=== PATIENT | female | born 1945 | race Two or more races ===

== ENCOUNTER 2024-11-15 13:25 | Outpatient (AMB) | payer MEDICARE, SELFPAY ==
[2024-11-15 13:54] VITALS: BP 136/62; PULSE 73; RESP 16; TEMP 36.6; O2SAT 97; BMI 29.3
--- NOTE | 2024-11-15 13:54 | ORTHONT_ITS ---
Vital signs 11/15/24 13:54 Height 1.47 m Height Method Measured Weight 63.73 kg Weight Measurement Method Standing Scale BMI 29.3 BP 136/62 H Blood Pressure Source Automatic Cuff Blood Pressure Location Right Upper Arm Position Sitting Respiration 16 Pulse 73 Pulse Source Monitor Temp 97.8 F Temp Source Temporal Artery Scan Pulse Oximetry (%) 97 Oxygen Delivery Method Room Air Med/Allergies Allergies & Medications Allergies No Known Allergies Allergy (Verified 11/15/24 13:57) Medication Reconciliation acetaminophen 650 mg/20.3 mL oral solution 650 mg PO Q6H PRN 11/15/24 [History C onfirmed 11/15/24] atorvastatin 10 mg tablet 10 mg PO QDAY 11/15/24 [History Confirmed 11/15/24] glipizide 5 mg tablet 5 mg PO BID 11/15/24 [History Confirmed 11/15/24] hydrochlorothiazide 12.5 mg tablet 12.5 mg PO QDAY 11/15/24 [History Confirmed 11/15/24] losartan 100 mg tablet 100 mg PO QDAY 11/15/24 [History Confirmed 11/15/24] Exam Exam Patient is in no acute distress and is cooperative with the examination today. Breathing is nonlabored. Patient has a normal mood and affect. Bilateral extremities were evaluated and demonstrates sensation intact to light touch. Palpable pedal pulses are present. No significant edema is present. Bilateral hips were examined. The patient has no pain with log roll of the hips. Internal rotation to 30 degrees and external rotation to 30 degrees is painless. Negative FADIR. Right knee was examined today. The right knee is in reasonable alignment. Range of motion from 0-120 degrees. Knee is stable to varus and valgus as well as AP translation with <5mm. Patient has a negative McMurrays. There is no pain with patellofemoral compression and no crepitus noted. The knee is nontender to pal pation. Left knee was examined today. The left knee is in varus alignment. Range of motion from 0-115 degrees. Knee is stable to varus and valgus as well as AP translation with <5mm. Patient has a negative McMurrays. There is no pain with patellofemoral compression and no crepitus noted. The knee is tender to palpation medially. X-rays from 12/26/2021 demonstrates complete obliteration of the medial joint space and varus deformity. Assessment and Plan Problem List (1) Arthritis of left knee: Status: Acute Plan: Patient is a pleasant 79-year-old female with left knee pain and left knee arthritis. We discussed different treatment options. We will Get new weightbearing x-rays as the last ones are over 3 years old. She was [id number] at that time. Will likely discuss surgical treatment as a reasonable option at the next visit. The pain is affecting her quality life. 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[employer] Level 3 (2231-5243) MA Intake Visit Data Collection New Patient or Established: Established Patient (seen at [facility] within 3 years) Reason for Visit:: LEFT KNEE PAIN Seen by Clinical Staff ONLY (RN/MA): No Insole And Outsole Preparer Required: Yes PCP or OBGYN visit in last 3 months: Yes Hx Now: No Do You Feel Safe at Home: Yes Authorities Contacted: N/A Questionairres Past Medical History Past Medical History Have you ever been diagnosed with any of the following: Subjective Visit Visit for: new patient and knee (LEFT KNEE ) Immunization / Flu Flu Vaccine in the Last 12 Months: Yes Flu Vaccine Exclusion Criteria: Already Received History of Present Illness Chief complaint: Left knee pain Vignesh is a 79-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 The left knee pain has been ongoing for several years. She has had over 3 injections in the past. The knee injections are only working for about 1 month right now. She reports the pains on the her left knee primarily. Personal History Red flag PMH: none Pain Pain level (0-10): 8 Pain duration: 3 YEARS Pain location: anterior Pain quality: sharp and aching Associated signs & symptoms: numbness, weakness and other (specify) (POPPING ) Ambulatory data Ambulatory device: cane Walking distance (minutes): 1 Treatments Number of previous injections: 3 Improvement with previous injections: No Number of Physical Therapy sessions: 0 Improvement with NSAIDS: n/a Review of Systems Review of Systems: All systems negative unless otherwise noted in HPI.
--- NOTE | 2024-11-15 14:01 | XR_ITS ---
Examination: Bilateral AP knees single view Left knee PA, lateral, axial 3 views TECHNIQUE: Bilateral AP knees standing single view Left knee PA standing flexion single view, left knee axial, single view, left knee standing lateral single view, total 3 views Date and time: November 15, 2024 at 1434 hours INDICATIONS: Left knee pain 3 years. FINDINGS: Prominent osteopenia Mild narrowing medial joint space right knee Severe narrowing, [id number], medial joint space left knee Advanced osteoarthritis left patellofemoral and lateral joint spaces Moderate left knee effusion IMPRESSION: Advanced left knee tricompartment osteoarthritis including severe narrowing [id number] medial joint space left knee
== END 2024-11-15 14:08 | disposition home or self-care (01) ==
LOC: HODSRG 13:25
PROVIDERS: PCP Physician Assistant Medical; Referring Provider Physician Assistant Medical; Supervising Provider Orthopaedic Surgery Adult Reconstructive Orthopaedic Surgery; Visit Provider Orthopaedic Surgery Adult Reconstructive Orthopaedic Surgery
DX: M17.12 Unilateral primary osteoarthritis, left knee (principal); M25.562 Pain in left knee
CPT/HCPCS: 73564; 99203; G0463

== ENCOUNTER 2024-12-06 13:25 | Outpatient (AMB) | payer MEDICARE, SELFPAY ==
[2024-12-06 13:36] VITALS: BP 137/74; PULSE 83; RESP 18; TEMP 36.9; O2SAT 93; BMI 29.7
--- NOTE | 2024-12-06 13:36 | ORTHONT_ITS ---
Vital signs 12/06/24 13:36 Height 1.47 m Height Method Stated Weight 64.212 kg Weight Measurement Method Standing Scale BMI 29.7 BP 137/74 H Blood Pressure Source Automatic Cuff Blood Pressure Location Left Upper Arm Position Sitting Respiration 18 Pulse 83 Pulse Source Monitor Temp 98.4 F Temp Source Temporal Artery Scan Pulse Oximetry (%) 93 L Oxygen Delivery Method Room Air Med/Allergies Allergies & Medications Allergies No Known Allergies Allergy (Verified 12/06/24 13:37) Medication Reconciliation acetaminophen 650 mg/20.3 mL oral solution 650 mg PO Q6H PRN 11/15/24 [History C onfirmed 12/06/24] atorvastatin 10 mg tablet 10 mg PO QDAY 11/15/24 [History Confirmed 12/06/24] glipizide 5 mg tablet 5 mg PO BID 11/15/24 [History Confirmed 12/06/24] hydrochlorothiazide 12.5 mg tablet 12.5 mg PO QDAY 11/15/24 [History Confirmed 12/06/24] losartan 100 mg tablet 100 mg PO QDAY 11/15/24 [History Confirmed 12/06/24] Exam Exam Patient is in no acute distress and is cooperative with the examination today. Breathing is nonlabored. Patient has a normal mood and affect. Bilateral extremities were evaluated and demonstrates sensation intact to light touch. Palpable pedal pulses are present. No significant edema is present. Bilateral hips were examined. The patient has no pain with log roll of the hips. Internal rotation to 30 degrees and external rotation to 30 degrees is painless. Negative FADIR. Right knee was examined today. The right knee is in reasonable alignment. Range of motion from 0-120 degrees. Knee is stable to varus and valgus as well as AP translation with <5mm. Patient has a negative McMurrays. There is no pain with patellofemoral compression and no crepitus noted. The knee is nontender to pal pation. Left knee was examined today. The left knee is in varus alignment. Range of motion from 0-115 degrees. Knee is stable to varus and valgus as well as AP translation with <5mm. Patient has a negative McMurrays. There is no pain with patellofemoral compression and no crepitus noted. The knee is tender to palpation medially. X-rays from 11/15/2024 demonstrates complete obliteration of the medial joint space and varus deformity. Assessment and Plan Problem List (1) Arthritis of left knee: Status: Acute Plan: Patient is a pleasant 79-year-old female with left knee pain and left knee arthritis. We discussed different treatment options. She has failed injections and NSAIDS as well as home exercises. We thus discussed total knee replacement as a reasonable option. She is using a cane The nature and purpose of the total knee replacement, alternative method(s) of treatment, the material risks involved, and the possibility of complications were fully explained to the patient. The patient does NOT have any of the following contraindications to TKA: - Active infection of the knee joint, OR - Active systemic bacteremia, OR - Active skin infection or open wound at surgical site, OR - Neuropathic arthritis, OR - Severe, rapidly progressive neurological disease, OR - Severe medical condition that makes risks of surgery outweigh the potential benefit The patient was told the most common risks and complications associated with a total knee replacement include, but are not limited to: blood clots in the leg, fatal pulmonary embolism, dislocation of the prosthesis, intraoperative and postoperative fractures of the femur or tibia, infection, failure of the prosthesis or grafting materials, complications from anesthesia, reactions to blood transfusions, postoperative leg length inequality, instability of the knee replacement, nerve damage or injury, vascular injury, delayed wound healing, infection, other injury or even . In addition, there are risks associated with anesthesia given during this operation. Also, the patient was told that after undergoing a total knee replacement there may still be persistent pain or disability. The patient was informed that the success of this operation in part depends upon the mechanical devices which are going to be implanted and that these devices can fail or malfunction, and may need to be repaired or replaced and there are no guarantees as to the longevity of this device or its parts and that it or its parts could fail prematurely. The patient was also notified that during the course of surgery, there may be a need to use bone graft from donors, and that any bone graft used will be carefully screened for communicable diseases, including AIDS, hepatitis, Travon-Creutzfeldt, or other diseases, but despite the screening procedures, there is a small chance that they could contract one of these diseases. Finally, the patient was asked to follow completely and fully with all advice and recommended treatments, and that recovery and ultimate outcome are affected by their compliance with recommended treatment. We discussed the risks, benefits and treatment alternatives, and the patient is interested in proceeding with surgery. We will try to set this up as expeditiously as possible. Advanced Care Planning Discussion Advance care planning discussed with:: patient and child Office Procedures GNS Level of Care Nursing/Assessment Patient Status: Established Patient Nursing Assessment/Reassesment: Medication Reconciliation, Update PMH in EMR and Vital Signs Coordination of Care: Complex Care and Chronic Disease 1-5, Education Complex Pt/Fam, Consent,records obtained, informed consent, Results/Orders obtained and Staff clarify orders Special Needs: Language special needs Established Patient Charge Established Patient Point Assignment: 95 Established Patient Point Charge: EP Level 3 (80-115) MA Intake Visit Data Collection New Patient or Established: Established Patient (seen at [facility] within 3 years) Reason for Visit:: XRAY RESULTS Seen by Clinical Staff ONLY (RN/MA): No Hand Sign Writer Required: Yes PCP or OBGYN visit in last 3 months: Yes Hx Now: No Do You Feel Safe at Home: Yes Authorities Contacted: N/A Questionairres Past Medical History Past Medical History Have you ever been diagnosed with any of the following: Respiratory Problems Smoking: No Smoking Exposure: No Subjective Visit Visit for: follow up visit, knee and x-rays Immunization / Flu Flu Vaccine in the Last 12 Months: No Flu Vaccine Exclusion Criteria: No Exclusion Criteria History of Present Illness Chief complaint: Left knee pain Vignesh is a 79-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 The left knee pain has been ongoing for several years. She has had over 3 injections in the past. The knee injections are only working for about 1 month right now. She reports the pains on the her left knee primarily. Personal History Red flag PMH: none Pain Pain level (0-10): 8 Pain duration: WITH MOVEMENT Pain location: inside (medial), outside (lateral), anterior and posterior Pain quality: dull and aching Pain timing: increases with activity and stairs Associated signs & symptoms: numbness, weakness and other (specify) (POPPING ) Ambulatory data Ambulatory device: cane Walking distance (minutes): 1 Treatments Number of previous injections: 3 Improvement with previous injections: No Number of Physical Therapy sessions: 0 Improvement with PT: No Improvement with NSAIDS: no Review of Systems Review of Systems: All systems negative unless otherwise noted in HPI.
== END 2024-12-06 13:51 | disposition home or self-care (01) ==
LOC: HODSRG 13:25
PROVIDERS: PCP Physician Assistant Medical; Referring Provider Physician Assistant Medical; Supervising Provider Orthopaedic Surgery Adult Reconstructive Orthopaedic Surgery; Visit Provider Orthopaedic Surgery Adult Reconstructive Orthopaedic Surgery
DX: M17.12 Unilateral primary osteoarthritis, left knee (principal); M25.562 Pain in left knee; E11.9 Type 2 diabetes mellitus without complications
CPT/HCPCS: 99213; G0463